=== PATIENT | female | born 2005 | race Caucasian/White ===

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

== ENCOUNTER 2023-01-24 00:58 | Emergency (ER) | payer OTHER ==
[~2023-01-24] VITALS: Ht 154.9 cm; Wt 100.0 kg
[~2023-01-24 00:58] MED LIST: CYCL-837 PO
[2023-01-24] MEDS ORDERED: HYDROmorphone HCL 2 MG/ML VL/or syr IM ONE (01:30)
[2023-01-24 07:33] VITALS: BP 110/50
== END 2023-01-24 07:36 | disposition home or self-care (01) ==
LOC: ER 01:16
DX: S70.02XA Contusion of left hip, initial encounter (principal); R56.9 Unspecified convulsions; F12.10 Cannabis abuse, uncomplicated; F14.10 Cocaine abuse, uncomplicated; W10.8XXA Fall (on) (from) other stairs and steps, initial encounter; Y93.89 Activity, other specified; Y92.89 Other specified places as the place of occurrence of the external cause; Y99.8 Other external cause status
CPT/HCPCS: 72192; 73552; 96372; 99285; J1170